=== PATIENT | female | born 1950 | race Caucasian/White ===

== ENCOUNTER 2021-09-19 13:34 | Emergency (ER) | payer BC, MEDICARE ==
[~2021-09-19] VITALS: Ht 165.1 cm; Wt 127.0 kg
[~2021-09-19 13:34] MED LIST: ALBU2.5V5 NEB; ALBU2.5V8 INH; ASPI-630 PO; BUDE10.2 IH; CIPR500T2 PO; CLON0.2T PO; FLUT16SP NS; HYDR12.58 PO; INSU100I17 SQ; INSU100V9 SQ; LOSA100T14 PO; METF500T16 PO; METO-239 PO; TIOT18CA IH
[2021-09-19] MEDS ORDERED: IBUPROFEN 400 MG TABLET. PO ONE (14:00)
--- NOTE | 2021-09-19 14:43 | RAD ---
Exam performed: X-ray right ankle HISTORY: Patient tripped and fell, injury lateral ankle. DATE OF SERVICE: 09/19/2021. COMPARISON: None available FINDINGS: AP, lateral and oblique views of the right ankle is obtained. Normal alignment of the ankle mortise i s preserved. There is no acute fracture or dislocation. Extensive soft tissue swelling is seen around the ankle joint. No foreign body. IMPRESSION: Diffuse soft tissue swelling without underlying bony abnormality. Electronically signed by: Cookie Gan MD (09/19/2021 2:40 PM) [facility]
--- NOTE | 2021-09-19 15:01 | PHYS DOC ---
Past Medical History Additional Past Medical Histor: breast cancer Past Surgical History: Other Additional Past Surgical Histo: L breast General Adult EDM: Chief Complaint: ANKLE PROBLEM HPI: HPI: Patient is a 71 year old [f__sex] who presents with [] Review of Systems: Review of Systems: Constitutional: Denies fever or chills. [] Eyes: Denies change in visual acuity. [] HENT: Denies nasal congestion or sore throat. [] Respiratory: Denies cough or shortness of breath. [] Cardiovascular: Denies chest pain or edema. [] GI: Denies abdominal pain, nausea, vomiting, bloody stools or diarrhea. [] : Denies dysuria. [] Musculoskeletal: Denies back pain or joint pain. [] Integument: Denies rash. [] Neurologic: Denies headache, focal weakness or sensory changes. [] Endocrine: Denies polyuria or polydipsia. [] Lymphatic: Denies swollen glands. [] Psychiatric: Denies depression or anxiety. [] Heart Score: Risk Factors: Risk Factors: DM, Current or recent (<one month) smoker, HTN, HLP, family history of CAD, obesity. Risk Scores: Score 0 - 3: 2.5% MACE over next 6 weeks - Discharge Home Score 4 - 6: 20.3% MACE over next 6 weeks - Admit for Clinical Observation Score 7 - 10: 72.7% MACE over next 6 weeks - Early Invasive Strategies Current Medications: Current Medications Medications (Trade) Dose Ordered Sig/Mary Start Time Stop Time Status Last Admin Dose Admin Ibuprofen (Motrin) 400 mg 1X ONCE 09/19/21 14:00 09/19/21 14:01 DC 09/19/21 14:49 400 MG Allergies: Allergies: Allergies Coded Allergies Type Severity Reaction Last Updated Verified Penicillins Allergy Intermediate Rash 02/28/15 Yes [id number] Reductase Inhibitor Allergy Intermediate 02/28/15 Yes Sulfa (Sulfonamide Antibiotics) Allergy Intermediate 02/28/15 Yes codeine Allergy Intermediate 02/28/15 Yes Physical Exam: PE: Constitutional: Well developed, well nourished, no acute distress, non-toxic appearance. [] HENT: Normocephalic, atraumatic, bilateral external ears normal, oropharynx moist, no oral exudates, nose normal. [] Eyes: PERRLA, EOMI, conjunctiva normal, no discharge. [] Neck: Normal range of motion, no tenderness, supple, no stridor. [] Cardiovascular:Heart rate regular rhythm, no murmur [] Lungs & Thorax: Bilateral breath sounds clear to auscultation [] Abdomen: Bowel sounds normal, soft, no tenderness, no masses, no pulsatile masses. [] Skin: Warm, dry, no erythema, no rash. [] Back: No tenderness, no CVA tenderness. [] Extremities: No tenderness, no cyanosis, no clubbing, ROM intact, no edema. [] Neurologic: Alert and oriented X 3, normal motor function, normal sensory function, no focal deficits noted. [] Psychologic: Affect normal, judgement normal, mood normal. [] Current Patient Data: Vital Signs: Vital Signs Date Time Temp Pulse Resp B/P (MAP) Pulse Ox O2 Delivery O2 Flow Rate FiO2 09/19/21 13:35 98.1 90 18 180/84 (116) 99 Room Air 98.1 EKG: EKG: [] Radiology/Procedures: Radiology/Procedures: PROCEDURE: ANKLE RIGHT 3V Exam performed: X-ray right ankle HISTORY: Patient tripped and fell, injury lateral ankle. DATE OF SERVICE: 09/19/2021. COMPARISON: None available FINDINGS: AP, lateral and oblique views of the right ankle is obtained. Normal alignment of the ankle mortise is preserved. There is no acute fracture or dislocation. Extensive soft tissue swelling is seen around the ankle joint. No foreign body. IMPRESSION: Diffuse soft tissue swelling without underlying bony abnormality. Electronically signed by: Cookie Gan MD (09/19/2021 2:40 PM) [facility] Course & Med Decision Making: Course & Med Decision Making Pertinent Labs and Imaging studies reviewed. (See chart for details) [] Dragon Disclaimer: Dragon Disclaimer: This electronic medical record was generated, in whole or in part, using a voice recognition dictation system. Departure Departure Impression: Primary Impression: Ankle sprain Qualified Codes: S93.401A - Sprain of unspecified ligament of right ankle, initial encounter Additional Impressions: Hip pain, left Hypoglycemia Disposition: HOME / SELF CARE / HOMELESS Condition: STABLE Referrals: RENALDO DOZIER MD (PCP) JENNIFER ARMENDARIZ DPM Patient Instructions: Ankle Sprain, [id number], Hip Pain, Hypoglycemia (Low Blood Sugar), RICE - Routine Care for Injuries, [id number] Additional Instructions: Ice area of discomfort 20 minutes on then leave off for next 20 minutes. Repeat several times for the next few days. Take [id number] ibuprofen and or Tylenol for pain or discomfort. AZIZA RICHARDSON DO Sep 19, 2021 15:01
--- NOTE | 2021-09-19 16:14 | RAD ---
Exam performed: X-ray pelvis and left hip HISTORY: Pain, status post fall. DATE OF SERVICE: 02/17/2021. COMPARISON: None available FINDINGS: AP view of the pelvis and AP and frog-leg lateral view of the left hip is obtained. Normal alignment of both hip and sacroiliac joints is preserved. There is no acute fracture or dislocation. No soft ti ssue swelling or foreign body seen. IMPRESSION: No acute abnormality seen in the single view pelvis and left hip. Electronically signed by: Cookie Gan MD (09/19/2021 4:11 PM) [facility]
[2021-09-19 18:00] VITALS: BP 160/84
== END 2021-09-19 18:10 | disposition home or self-care (01) ==
LOC: ER 13:34
DX: S93.401A Sprain of unspecified ligament of right ankle, initial encounter (principal); W18.39XA Other fall on same level, initial encounter; Y93.89 Activity, other specified; Y92.89 Other specified places as the place of occurrence of the external cause; Y99.8 Other external cause status; M25.552 Pain in left hip; E16.2 Hypoglycemia, unspecified; Z88.0 Allergy status to penicillin; Z88.2 Allergy status to sulfonamides; Z88.5 Allergy status to narcotic agent; Z88.8 Allergy status to other drugs, medicaments and biological substances
CPT/HCPCS: 73502; 73610; 82962; 99283